=== PATIENT | female | born 1990 | race Caucasian/White ===

== ENCOUNTER 2018-07-23 21:46 | Emergency (ER) | payer MEDICAID ==
[~2018-07-23] VITALS: Ht 160 cm; Wt 63.6 kg
[2018-07-23 21:57] VITALS: TEMP 98.8
[2018-07-23] MEDS ORDERED: PRENATAL (22:35)
[2018-07-23 22:42] LABS: COLLECTION METHOD CLEAN CATCH
[2018-07-23 22:47] LABS: MUCOUS Present /lpf; PH 5 (5-8); SQUAMOUS EPITHELIAL None Seen /hpf; URINE APPEARANCE Clear; URINE BACTERIA None Seen /hpf; URINE BILIRUBIN Negative (NEGATIVE); URINE BLOOD Negative (NEGATIVE); URINE COLOR Yellow; URINE GLUCOSE Negative (NEGATIVE); URINE KETONE Negative (NEGATIVE); URINE LEUKOCYTE ESTERASE Negative (NEGATIVE); URINE NITRATE Negative (NEGATIVE); URINE PROTEIN(semi-quant) Negative (NEGATIVE); URINE RBC 0-2 /hpf; URINE UROBILINOGEN Negative (NEGATIVE)
[2018-07-23 22:48] LABS: BASO # 0.1 (0.0-0.2); BASO % 0.7 % (0.0-2.0); EOS # 0.9 (0.0-0.7); GRAN # 7.5 (1.4-6.5); GRAN % 56.4 % (42.2-75.2); HEMOGLOBIN 12.1 g/dl (12.5-16.0); LYMPH # 3.6 (1.2-3.4); LYMPH % 27.3 % (20.0-51.0); MEAN CELL VOLUME 91 fl (80.0-100.0); MEAN CORPUSCULAR HEMOGLOBIN 31 pg (27.0-31.0); MEAN CORPUSCULAR HGB CONC 34 g/dl (33.0-37.0); MEAN PLATELET VOLUME 9.5 fl (7.4-10.4); MONO # 1.1 (0.1-0.6); MONO % 8.3 % (1.7-9.3); PLATELET COUNT 287 K/mm3 (130-400); RED BLOOD COUNT 3.97 M/mm3 (4.10-5.30); REDCELL DISTRIBUTION WIDTH-CV 11.9 % (11.5-14.5)
[2018-07-23 23:01] LABS: ALBUMIN 4.2 gm/dL (3.5-5.0); BILIRUBIN,TOTAL 0.3 mg/dL (0.0-1.0); CALCIUM 9.4 mg/dL (8.4-10.2); CREATININE, serum 0.56 mg/dL (0.52-1.25); POTASSIUM 3.9 mmol/L (3.4-5.0); TOTAL PROTEIN 7.4 gm/dL (6.4-8.2)
[2018-07-24 01:36] VITALS: BP 99/60; PULSE 83
== END 2018-07-24 01:36 | disposition home or self-care (01) ==
LOC: COL.ER 21:46
PROVIDERS: Physician Assistant
DX: O26.891 Other specified pregnancy related conditions, first trimester (principal); D64.9 Anemia, unspecified; R10.2 Pelvic and perineal pain; Z3A.01 Less than 8 weeks gestation of pregnancy

== ENCOUNTER 2018-11-27 20:16 | Outpatient (CLI) | payer MEDICAID ==
[~2018-11-27] VITALS: Ht 160 cm; Wt 75.0 kg
[~2018-11-27 20:16] MED LIST: PRENATAL
--- NOTE | 2018-11-27 20:30 | NUR ---
PT ARRIVES TO UNIT AMBULATORY WITH C/O SHARP ABDOMINAL PAIN. PT TO ROOM, CHANGED INTO GOWN. EFM X2 APPLIED, VS OBTAINED.
[2018-11-27 20:39] VITALS: BP 106/57; PULSE 64; TEMP 98
[2018-11-27 21:00] VITALS: BP 106/57; PULSE 64; TEMP 98
[2018-11-27 21:38] LABS: COLLECTION METHOD CLEAN CATCH
[2018-11-27 21:53] LABS: AMORPHOUS CRYSTAL Present /uL; MUCOUS Present /lpf; PH 8 (5-8); SQUAMOUS EPITHELIAL None Seen /hpf; URINE APPEARANCE Cloudy; URINE BACTERIA None Seen /hpf; URINE BILIRUBIN Negative (NEGATIVE); URINE BLOOD Negative (NEGATIVE); URINE COLOR Yellow; URINE GLUCOSE Negative (NEGATIVE); URINE KETONE Negative (NEGATIVE); URINE LEUKOCYTE ESTERASE Negative (NEGATIVE); URINE NITRATE Negative (NEGATIVE); URINE PROTEIN(semi-quant) Negative (NEGATIVE); URINE RBC 0-2 /hpf; URINE UROBILINOGEN Negative (NEGATIVE); URINE WBC 0-2 /hpf
--- NOTE | 2018-11-27 22:22 | NUR ---
MONITORING DC'D AT THIS TIME. PT MAY DC HOME PER DR. VEIRA.
--- NOTE | 2018-11-27 22:45 | NUR ---
DISCHARGE INSTRUCTIONS REVIEWED WITH PT AND SPOUSE. QUESTIONS ENCOURAGED AND ANSWERED. PT LEFT THE UNIT AMBULATORY WITH SPOUSE AND DAUGHTER FOR HOME.
== END 2018-11-27 22:45 | disposition home or self-care (01) ==
LOC: LDRO 20:16
PROVIDERS: Obstetrics & Gynecology
DX: O26.892 Other specified pregnancy related conditions, second trimester (principal); R10.30 Lower abdominal pain, unspecified; Z3A.24 24 weeks gestation of pregnancy

== ENCOUNTER 2019-02-13 15:52 | Outpatient (CLI) | payer MEDICAID ==
[~2019-02-13] VITALS: Ht 160 cm; Wt 78.2 kg
--- NOTE | 2019-02-13 16:00 | NUR ---
Presents to labor and delivery. States has been having contractions since 0700 this morning. Says they have been getting stronger. Assessment done, questions offered and answered.
[2019-02-13 16:03] VITALS: BP 101/72; PULSE 90; TEMP 98.4
[2019-02-13 16:30] VITALS: BP 104/66; PULSE 80
--- NOTE | 2019-02-13 16:30 | NUR ---
Dr. Navarrete here, report given on patient. Let her know that patient has been sofie since 7 a.m. this morning. Let her know that she is dilated to one fifty percent effaced, minus three. New orders to watch for an hour. Also says to give tylenol one gram. 1647 Tylenol one gram given as ordered.
[2019-02-13 17:00] VITALS: BP 92/58; PULSE 78
--- NOTE | 2019-02-13 17:50 | NUR ---
Discharge instructions given, verbalizes understanding. Dismissed with family, alert, ambulatory, stable.
== END 2019-02-13 17:50 | disposition home or self-care (01) ==
LOC: LDRO 15:52
DX: O62.9 Abnormality of forces of labor, unspecified (principal); Z3A.35 35 weeks gestation of pregnancy